=== PATIENT | female | born 1985 | race Caucasian/White ===

== ENCOUNTER 2023-06-20 20:38 | Emergency (ER) | payer OTHER, SELFPAY ==
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
[2023-06-20 21:00] VITALS: BP 138/100; BP 142/84; PULSE 108; PULSE 116; RESP 20; TEMP 36.4; O2SAT 98; O2SAT 99; BMI 30.9
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
[2023-06-20 23:07] VITALS: BP 135/95; PULSE 102; RESP 18; TEMP 36.2; O2SAT 100
== END 2023-06-20 23:08 | disposition home or self-care (01) ==
PROVIDERS: Emergency Provider Emergency Medicine
DX: S80.11XA Contusion of right lower leg, initial encounter (principal); R51.9 Headache, unspecified; M54.2 Cervicalgia; V43.52XA Car driver injured in collision with other type car in traffic accident, initial encounter; Y93.9 Activity, unspecified; Y92.410 Unspecified street and highway as the place of occurrence of the external cause; Y99.9 Unspecified external cause status
CPT/HCPCS: 70450; 72125; 99284